=== PATIENT | male | born 1995 | race Caucasian/White ===

== ENCOUNTER 2021-12-04 03:20 | Emergency (ER) | payer MEDICARE ==
[2021-12-04] MEDS ORDERED: Sodium Chloride 0.9% 1000 ML 1,000 ML IV STA (03:33)
--- NOTE | 2021-12-04 03:33 | ERPHSYRPT ---
- History of Present Illness Time Seen by Provider: 12/04/21 03:33 Source: patient, EMS Exam Limitations: no limitations Physician History: This is a 26 y/o white male paraplegic who was concerned about him not feeling normal including being flushed, muscle aches and fluctuating sbp. his baseline sbp is low 100's. it was in the 90s. he called ems and his sbp in the 120s on arrival. he wanted to be evaluated in the ed. his sbp on arrival to ed was 109. he denies fever, he denies cp, he denies abd pain. he does not have sob Timing/Duration: today Severity: mild Associated Symptoms: denies symptoms Allergies/Adverse Reactions: No Known Drug Allergies Allergy (Verified 12/04/21 03:54) Home Medications: Baclofen 10 mg [Lioresal 10 mg] 30 mg PO QID 12/04/21 [History] Midodrine HCl 10 mg PO DAILY 12/04/21 [History] Mirabegron [Myrbetriq] 25 mg PO DAILY 12/04/21 [History] Tolterodine Tartrate [Detrol LA] 2 mg PO DAILY 12/04/21 [History] Travel Risk - International Travel Have you traveled outside of the country in past 3 weeks: No - Coronavirus Screening Are you exhibiting any of the following symptoms?: No Close contact with a COVID-19 positive Pt in past 14-21 Days: No - Review of Systems Constitutional: No Symptoms Eyes: No Symptoms Ears, Nose, & Throat: No Symptoms Respiratory: No Symptoms Cardiac: No Symptoms Abdominal/Gastrointestinal: No Symptoms Genitourinary Symptoms: No Symptoms Musculoskeletal: Myalgias Neurological: No Symptoms Psychological: Anxiety Endocrine: No Symptoms Hematologic/Lymphatic: No Symptoms Immunological/Allergic: No Symptoms All Other Systems: Reviewed and Negative - Past Medical History Neurological History: Other Cardiac History: No Pertinent History Respiratory History: Other Endocrine Medical History: No Pertinent History Musculoskeletal History: Other Other Medical History: PT. HAS SUPRAPUBIC CATHETER SAND HAS HX UTIS. - Nursing Vital Signs Nursing Vital Signs: Initial Vital Signs Temperature 98.4 F 12/04/21 03:23 Pulse Rate 94 H 12/04/21 03:23 Respiratory Rate 16 12/04/21 03:23 Blood Pressure 98/72 12/04/21 03:23 O2 Sat by Pulse Oximetry 94 L 12/04/21 03:23 Pain Scale Pain Intensity 4 - Physical Exam General Appearance: no apparent distress, alert, anxiety Eye Exam: PERRL/EOMI, eyes nml inspection Ears, Nose, Throat Exam: normal ENT inspection, moist mucous membranes Neck Exam: normal inspection, non-tender, supple, full range of motion Respiratory Exam: normal breath sounds, lungs clear, airway intact, No chest tenderness, No respiratory distress Cardiovascular Exam: regular rate/rhythm, normal heart sounds, normal peripheral pulses Gastrointestinal/Abdomen Exam: soft, normal bowel sounds, No tenderness Rectal Exam: not done Extremity Exam: other (moves upper ext. pt paraplegic) Neurologic Exam: alert, oriented x 3, cooperative, normal mood/affect Skin Exam: normal color, warm, dry Lymphatic Exam: No adenopathy SpO2 Interpretation: normal O2 Delivery: Room Air - Course Nursing assessment & vital signs reviewed: Yes EKG Interpreted by Me: RATE (69), Sinus Rhythm, NORMAL AXIS, NORMAL INTERVALS, NORMAL QRS, NORMAL ST-T, Other (no acute ischemia. ) Ordered Tests: Active Orders 24 hr Category Date Time Status Pole Climber STAT Care 12/04/21 03:34 Active EKG-ER Only STAT Care 12/04/21 03:33 Active IV Insertion STAT Care 12/04/21 03:33 Active Pulse Oximetry (ED) STAT Care 12/04/21 03:33 Active BLOOD CULTURE Stat Lab 12/04/21 04:10 Received CBC W DIFF Stat Lab 12/04/21 04:00 Completed CMP Stat Lab 12/04/21 04:00 Completed CULTURE,URINE Stat Lab 12/04/21 06:17 Received TROPONIN Q3H Lab 12/04/21 04:00 Completed Medication Summary Discontinued Medications Generic Name Dose Route Start Last Admin Trade Name Freq PRN Reason Stop Dose Admin Hydrocodone Bitart/Acetaminophen 1 tab 12/04/21 04:07 12/04/21 04:58 Hydrocodone/Apap 5/325 Mg Tablet PO 12/04/21 04:08 1 tab STAT ONE Administration Hydrocodone Bitart/Acetaminophen Confirm 12/04/21 04:55 Hydrocodone/Apap 5/325 Mg Tablet Administered 12/04/21 04:56 Dose 1 tab .ROUTE .STK-MED ONE Sodium Chloride 1,000 mls @ 999 mls/hr 12/04/21 03:33 12/04/21 03:39 Sodium Chloride 0.9% 1000 Ml IV 12/04/21 04:33 999 mls/hr .Q1H1M STA Administration Sodium Chloride Confirm 12/04/21 03:38 Sodium Chloride 0.9% 1000 Ml Administered 12/04/21 03:39 Dose 1,000 mls @ ud .ROUTE .STK-MED ONE Lab/Rad Data: Laboratory Result Diagrams 12/04/21 04:00 12/04/21 04:00 Laboratory Results 12/04/21 12/04/21 12/04/21 Range/Units 06:17 04:00 04:00 WBC (4.0-10.5) K/mm3 RBC (4.1-5.6) M/mm3 Hgb (12.5-18.0) gm/dl Hct (42-50) % MCV (78-100) fl MCH (26-32) pg MCHC (32-36) g/dl RDW (11.5-14.0) % Plt Count (150-450) K/mm3 MPV (7.5-11.0) fl Gran % (36.0-66.0) % Eos # (Auto) (0-0.5) Absolute Lymphs (auto) (1.0-4.6) Absolute Monos (auto) (0.0-1.3) Lymphocytes % (24.0-44.0) % Monocytes % (0.0-12.0) % Eosinophils % (0.00-5.0) % Basophils % (0.0-0.4) % Absolute Granulocytes (1.4-6.9) Basophils # (0-0.4) Sodium 138 (137-145) mmol/L Potassium 5.6 H (3.5-5.1) mmol/L Chloride 105 (98-107) mmol/L Carbon Dioxide 19 L (22-30) mmol/L Anion Gap 20.0 H (5-15) MEQ/L BUN 17 (9-20) mg/dL Creatinine 0.49 L (0.66-1.25) mg/dL Estimated GFR > 60.0 ML/MIN Glucose 96 (74-106) mg/dL Calcium 9.1 (8.4-10.2) mg/dL Total Bilirubin 1.20 (0.2-1.3) mg/dL AST 73 H (17-59) U/L ALT 69 H (0-50) U/L Alkaline Phosphatase 51 (38-126) U/L Troponin I < 0.012 (0.000-0.034) ng/mL Serum Total Protein 7.9 (6.3-8.2) g/dL Albumin 4.7 (3.5-5.0) g/dL Urinalys Dipstick Clnc MAIN LAB Urine Color YELLOW (YELLOW) Urine Appearance CLEAR (CLEAR) Urine pH 6.0 (5-6) Ur Specific [place] >=1.030 (1.005-1.025) POC Urine Protein Conf TRACE (Negative) Urine Ketones TRACE (NEGATIVE) Urine Nitrite NEGATIVE (NEGATIVE) Urine Bilirubin NEGATIVE (NEGATIVE) Urine Urobilinogen 0.2 (0-1) mg/dL Urine Leukocytes TRACE (NEGATIVE) Urine WBC (Auto) 51-100 (0-5) /HPF Urine RBC (Auto) >101 (0-2) /HPF U Epithel Cells (Auto) NONE (FEW) /HPF Urine Bacteria (Auto) FEW (NEGATIVE) /HPF Urine RBC LARGE (0-5) Efra/ul Urine Mucus (Auto) SLIGHT (NEGATIVE) /HPF Ur Culture Indicated? YES Urine Glucose NEGATIVE (NEGATIVE) mg/dL 12/04/21 Range/Units 04:00 WBC 11.0 H (4.0-10.5) K/mm3 RBC 5.51 (4.1-5.6) M/mm3 Hgb 15.9 (12.5-18.0) gm/dl Hct 46.8 (42-50) % MCV 84.9 (78-100) fl MCH 28.9 (26-32) pg MCHC 34.0 (32-36) g/dl RDW 14.2 H (11.5-14.0) % Plt Count 328 (150-450) K/mm3 MPV 10.2 (7.5-11.0) fl Gran % 64.2 (36.0-66.0) % Eos # (Auto) 0.26 (0-0.5) Absolute Lymphs (auto) 2.54 (1.0-4.6) Absolute Monos (auto) 1.05 (0.0-1.3) Lymphocytes % 23.2 L (24.0-44.0) % Monocytes % 9.6 (0.0-12.0) % Eosinophils % 2.4 (0.00-5.0) % Basophils % 0.6 (0.0-0.4) % Absolute Granulocytes 7.04 H (1.4-6.9) Basophils # 0.07 (0-0.4) Sodium (137-145) mmol/L Potassium (3.5-5.1) mmol/L Chloride (98-107) mmol/L Carbon Dioxide (22-30) mmol/L Anion Gap (5-15) MEQ/L BUN (9-20) mg/dL Creatinine (0.66-1.25) mg/dL Estimated GFR ML/MIN Glucose (74-106) mg/dL Calcium (8.4-10.2) mg/dL Total Bilirubin (0.2-1.3) mg/dL AST (17-59) U/L ALT (0-50) U/L Alkaline Phosphatase (38-126) U/L Troponin I (0.000-0.034) ng/mL Serum Total Protein (6.3-8.2) g/dL Albumin (3.5-5.0) g/dL Urinalys Dipstick Clnc Urine Color (YELLOW) Urine Appearance (CLEAR) Urine pH (5-6) Ur Specific [place] (1.005-1.025) POC Urine Protein Conf (Negative) Urine Ketones (NEGATIVE) Urine Nitrite (NEGATIVE) Urine Bilirubin (NEGATIVE) Urine Urobilinogen (0-1) mg/dL Urine Leukocytes (NEGATIVE) Urine WBC (Auto) (0-5) /HPF Urine RBC (Auto) (0-2) /HPF U Epithel Cells (Auto) (FEW) /HPF Urine Bacteria (Auto) (NEGATIVE) /HPF Urine RBC (0-5) Efra/ul Urine Mucus (Auto) (NEGATIVE) /HPF Ur Culture Indicated? Urine Glucose (NEGATIVE) mg/dL - Progress Progress: improved Counseled pt/family regarding: lab results, diagnosis, need for follow-up - Departure Departure Disposition: Home Clinical Impression: UTI (urinary tract infection), Dehydration Condition: Stable Critical Care Time: No Referrals: LACIE GRANT MD [NON-STAFF PHY W/O PRIVILEGES] - Follow up/PCP as directed Additional Instructions: Drink plenty of fluids. take medications as prescribed. follow up with prescribing doctor for further evaluation and management Prescriptions: Ciprofloxacin [Cipro 500 MG] 500 mg PO BID #14 tablet
[2021-12-04] MEDS ORDERED: Sodium Chloride 0.9% 1000 ML 1,000 ML ONE (03:38)
[2021-12-04] MEDS ORDERED: NORCO 5/325 MG PO ONE (04:07)
[2021-12-04 04:18] LABS: Absolute Neutrophil Ct (ANC) 7.04 (1.4-6.9); Basophil (Absolute #) 0.07 (0-0.4); Eosinophil % 2.4 % (0.00-5.0); Eosinophil (Absolute #) 0.26 (0-0.5); Hematocrit 46.8 % (42-50); Hemoglobin 15.9 gm/dl (12.5-18.0); Lymphocyte (Absolute #) 2.54 (1.0-4.6); Lymphocytes % 23.2 % (24.0-44.0); Mean Cell Volume 84.9 fl (78-100); Mean Corpuscular Hemoglobin 28.9 pg (26-32); Mean Platelet Volume 10.2 fl (7.5-11.0); Monocyte (Absolute #) 1.05 (0.0-1.3); Monocytes % 9.6 % (0.0-12.0); Neutrophil % 64.2 % (36.0-66.0); Platelet Count 328 K/mm3 (150-450); Red Blood Count 5.51 M/mm3 (4.1-5.6); Red Cell Distribution Width 14.2 % (11.5-14.0)
[2021-12-04 04:32] LABS: ALBUMIN 4.7 g/dL (3.5-5.0); ALKALINE PHOSPHATASE 51 U/L (38-126); BLOOD UREA NITROGEN 17 mg/dL (9-20); CHLORIDE 105 mmol/L (98-107); Calcium 9.1 mg/dL (8.4-10.2); Carbon Dioxide 19 mmol/L (22-30); Creatinine 1 0.49 mg/dL (0.66-1.25); EST GLOMERULAR FILTRATION RATE > 60.0 ML/MIN; Glucose 96 mg/dL (74-106); Potassium 5.6 mmol/L (3.5-5.1); SGOT/AST 73 U/L (17-59); SGPT/ALT 69 U/L (0-50); SODIUM 138 mmol/L (137-145); Total Protein 7.9 g/dL (6.3-8.2)
[2021-12-04] MEDS ORDERED: NORCO 5/325 MG ONE (04:55)
[2021-12-04 06:35] LABS: Appearance CLEAR (CLEAR); Bilirubin NEGATIVE (NEGATIVE); Glucose NEGATIVE (NEGATIVE); Ketones TRACE (NEGATIVE)
[2021-12-04 06:36] LABS: Dipstick done @ ? MAIN LAB; Nitrite NEGATIVE (NEGATIVE); Protein,Urine Dip TRACE (Negative); RBC LARGE Ery/ul (0-5); Specific Gravity >=1.030 (1.005-1.025); Urobilinogen 0.2 mg/dL (0-1)
[2021-12-04 06:37] LABS: Bacteria FEW /HPF (NEGATIVE); Mucus SLIGHT /HPF (NEGATIVE); WBC 51-100 /HPF (0-5)
[2021-12-04 06:38] LABS: RBC >101 /HPF (0-2); Urine Cultured Indicated? YES
[2021-12-04] MEDS ORDERED: ROCEPHIN 1 Gm-D5w 50 ml Bag** 1 G/50 ML IVPB IV STA (06:39)
[2021-12-04] MEDS ORDERED: ROCEPHIN 1 Gm-D5w 50 ml Bag** 1 G/50 ML IVPB IV ONE (06:49)
[2021-12-04 07:06] VITALS: PULSE 82
[2021-12-04 07:25] VITALS: BP 116/79; O2SAT 96
[2021-12-04] MEDS ORDERED: Ativan 1 MG PO ONE (07:42)
[2021-12-04] MEDS ORDERED: Ativan 1 MG ONE (07:43)
== END 2021-12-04 07:48 | disposition home or self-care (01) ==
LOC: ED 03:20
DX: N39.0 Urinary tract infection, site not specified (principal); E86.0 Dehydration; M79.10 Myalgia, unspecified site; R23.2 Flushing; I99.8 Other disorder of circulatory system; G82.20 Paraplegia, unspecified; Z79.899 Other long term (current) drug therapy
CPT/HCPCS: 36000; 36415; 80053; 81015; 84484; 85025; 87040; 87077; 87086; 87186; 93005; 93041; 94760; 96360; 96365; 99285; J0696; A9270-GY

== ENCOUNTER 2022-01-27 07:53 | Emergency (ER) | payer MEDICARE ==
[2022-01-27 08:51] LABS: Appearance SLIGHTLY CLOUDY (CLEAR); Bilirubin NEGATIVE (NEGATIVE); Glucose NEGATIVE (NEGATIVE); Ketones NEGATIVE (NEGATIVE); Protein,Urine Dip TRACE (Negative); RBC LARGE Ery/ul (0-5); Specific Gravity 1.025 (1.005-1.025); Urobilinogen 0.2 mg/dL (0-1)
[2022-01-27 08:52] LABS: Dipstick done @ ? MAIN LAB; Nitrite NEGATIVE (NEGATIVE)
[2022-01-27 08:53] LABS: Bacteria MANY /HPF (NEGATIVE); Epithelial Cells RARE /HPF (FEW); Mucus SLIGHT /HPF (NEGATIVE); RBC 51-100 /HPF (0-2); WBC 26-50 /HPF (0-5)
[2022-01-27 08:54] LABS: Urine Cultured Indicated? YES
[2022-01-27 09:04] LABS: Amphetamine,Urine NEGATIVE (NEGATIVE); Barbiturate,Urine NEGATIVE (NEGATIVE); Benzodiazepine,Urine NEGATIVE (NEGATIVE); Cocaine,Urine NEGATIVE (NEGATIVE); Methadone,Urine NEGATIVE (NEGATIVE); Opiate,Urine NEGATIVE (NEGATIVE); PCP,Urine NEGATIVE (NEGATIVE); THC,Urine NEGATIVE (NEGATIVE)
[2022-01-27 09:07] LABS: ACETAMINOPHEN < 10 ug/ml (10-30); ALBUMIN 4.1 g/dL (3.5-5.0); ALKALINE PHOSPHATASE 51 U/L (38-126); ANION GAP 14.3 MEQ/L (5-15); BLOOD UREA NITROGEN 16 mg/dL (9-20); CHLORIDE 99 mmol/L (98-107); Calcium 9.8 mg/dL (8.4-10.2); Carbon Dioxide 29 mmol/L (22-30); Creatinine 1 0.72 mg/dL (0.66-1.25); EST GLOMERULAR FILTRATION RATE > 60.0 ML/MIN; Glucose 92 mg/dL (74-106); Potassium 3.9 mmol/L (3.5-5.1); SALICYLATE < 1.0 mg/dL (2-20); SGOT/AST 27 U/L (17-59); SGPT/ALT 50 U/L (0-50); SODIUM 138 mmol/L (137-145)
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
[2022-01-27 09:47] LABS: Absolute Neutrophil Ct (ANC) 5.21 x10^3/uL (1.4-6.9); Basophil (Absolute #) 0.09 x10^3/uL (0-0.4); Eosinophil % 6.3 % (0.00-5.0); Eosinophil (Absolute #) 0.56 x10^3/uL (0-0.5); Hematocrit 43.6 % (42-50); Hemoglobin 14.4 g/dL (12.5-18.0); Lymphocyte (Absolute #) 2.26 x10^3/uL (1.0-4.6); Lymphocytes % 25.5 % (24.0-44.0); Mean Cell Volume 87.7 fL (78-100); Mean Platelet Volume 10.1 fL (7.5-11.0); Monocyte (Absolute #) 0.71 x10^3/uL (0.0-1.3); Neutrophil % 58.9 % (36.0-66.0); Platelet Count 263 x10^3/uL (150-450); Red Blood Count 4.97 x10^6/uL (4.1-5.6); Red Cell Distribution Width 13.1 % (11.5-14.0); White Blood Count 8.9 x10^3/uL (4.0-10.5)
[2022-01-27 11:21] VITALS: BP 150/85; PULSE 78
[2022-01-27 11:44] VITALS: O2SAT 98
== END 2022-01-27 12:06 | disposition home or self-care (01) ==
LOC: ED 07:53
DX: Z03.6 Encounter for observation for suspected toxic effect from ingested substance ruled out (principal); G82.50 Quadriplegia, unspecified; Z79.899 Other long term (current) drug therapy
CPT/HCPCS: 36415; 80053; 80307; 81015; 85025; 87077; 87086; 87186; 93005; 99284

== ENCOUNTER 2022-08-20 19:57 | Emergency (ER) | payer MEDICARE ==
[2022-08-20] MEDS ORDERED: Sodium Chloride 0.9% 1000 ML 1,000 ML IV STA (20:17)
[2022-08-20 20:25] VITALS: O2SAT 94
[2022-08-20] MEDS ORDERED: Sodium Chloride 0.9% 1000 ML 1,000 ML ONE (21:05)
[2022-08-20 21:30] LABS: Amphetamine,Urine NEGATIVE (NEGATIVE); Barbiturate,Urine NEGATIVE (NEGATIVE); Benzodiazepine,Urine POSITIVE (NEGATIVE); Cocaine,Urine NEGATIVE (NEGATIVE); Methadone,Urine NEGATIVE (NEGATIVE); Opiate,Urine NEGATIVE (NEGATIVE); PCP,Urine NEGATIVE (NEGATIVE); THC,Urine POSITIVE (NEGATIVE)
[2022-08-20 22:01] LABS: Appearance Cloudy (Clear); Bacteria Few /HPF (None Seen); Bilirubin Negative (Negative); Blood Large (Negative); Epithelial Cells None Seen /HPF (None Seen); Glucose, Urine Negative (Negative); Hyaline Casts 0-2 /LPF (0-2); Ketones Negative (Negative); Leukocyte Esterase Moderate (Negative); Nitrite Positive (Negative); Protein,Urine Dip Trace (Negative); RBC 21-50 /HPF (0-5); Specific Gravity 1.015 (1.005-1.030); WBC 51-100 /HPF (0-5)
[2022-08-20 22:12] LABS: Absolute Neutrophil Ct (ANC) 5.87 x10^3/uL (1.4-6.9); Basophil (Absolute #) 0.07 x10^3/uL (0-0.4); Eosinophil % 1.7 % (0.00-5.0); Eosinophil (Absolute #) 0.15 x10^3/uL (0-0.5); Hematocrit 39.5 % (42-50); Hemoglobin 12.9 g/dL (12.5-18.0); Lymphocyte (Absolute #) 1.85 x10^3/uL (1.0-4.6); Lymphocytes % 21.5 % (24.0-44.0); Mean Cell Volume 87.8 fL (78-100); Mean Corpuscular Hemoglobin 28.7 pg (26-32); Mean Corpuscular Hgb Concent. 32.7 g/dL (32-36); Mean Platelet Volume 9.8 fL (7.5-11.0); Monocyte (Absolute #) 0.65 x10^3/uL (0.0-1.3); Monocytes % 7.5 % (0.0-12.0); Neutrophil % 68.3 % (36.0-66.0); Platelet Count 284 x10^3/uL (150-450); Red Cell Distribution Width 12.8 % (11.5-14.0); White Blood Count 8.6 x10^3/uL (4.0-10.5)
[2022-08-20 22:12] LABS: ADD URINE CULTURE? ORDERED SEPARATELY (NO)
[2022-08-20 22:27] LABS: ALBUMIN 3.5 g/dL (3.5-5.0); ALKALINE PHOSPHATASE 93 U/L (38-126); ANION GAP 7.9 MEQ/L (5-15); BLOOD UREA NITROGEN 10 mg/dL (9-20); CHLORIDE 109 mmol/L (98-107); Calcium 8.4 mg/dL (8.4-10.2); Carbon Dioxide 26 mmol/L (22-30); Creatinine 1 0.42 mg/dL (0.66-1.25); EST GLOMERULAR FILTRATION RATE > 60.0 ML/MIN; Glucose 115 mg/dL (74-106); Potassium 3.8 mmol/L (3.5-5.1); SGOT/AST 34 U/L (17-59); SGPT/ALT 32 U/L (0-50); SODIUM 139 mmol/L (137-145); Total Protein 6.3 g/dL (6.3-8.2)
[2022-08-20] MEDS ORDERED: ROCEPHIN 1 Gm-D5w 50 ml Bag** 1 G/50 ML IVPB IV STA (23:18)
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
[2022-08-20] MEDS ORDERED: Hydromorphone 1 mg/ml Injection IV ONE (23:30)
[2022-08-20] MEDS ORDERED: ROCEPHIN 1 Gm-D5w 50 ml Bag** 1 G/50 ML IVPB IV ONE (23:43)
[2022-08-20] MEDS ORDERED: Hydromorphone 1 mg/ml Injection ONE (23:43)
[2022-08-21 00:20] VITALS: BP 115/70; PULSE 79
== END 2022-08-21 00:46 | disposition home or self-care (01) ==
LOC: ED 19:57
DX: N39.0 Urinary tract infection, site not specified (principal); M79.10 Myalgia, unspecified site; R53.1 Weakness; G82.50 Quadriplegia, unspecified; Z79.899 Other long term (current) drug therapy; Z79.891 Long term (current) use of opiate analgesic; Z28.310 Unvaccinated for COVID-19
CPT/HCPCS: 36000; 36415; 80053; 80307; 81001; 82550; 84484; 85025; 87077; 87086; 87186; 93041; 94760; 96365; 96374; 99284; J0696; J1170